=== PATIENT | female | born 1990 | race Native Hawaiian/Other Pacific Islander ===

== ENCOUNTER 2017-01-27 10:54 | Outpatient (CLI) | payer OTHER | END 2017-01-27 19:21 | disposition home or self-care (01) | LOC: LABW 10:54 | DX: E65 Localized adiposity (principal) | CPT/HCPCS: 36415; 80375; 82530 ==

== ENCOUNTER 2017-04-26 08:54 | Outpatient (CLI) | payer OTHER | END 2017-04-26 19:31 | disposition home or self-care (01) | LOC: RAD 08:54 | DX: M81.0 Age-related osteoporosis without current pathological fracture (principal) ==

== ENCOUNTER 2017-11-29 16:16 | Outpatient (CLI) | payer OTHER | END 2017-11-29 21:50 | disposition home or self-care (01) | LOC: RAD 16:16 | DX: M79.671 Pain in right foot (principal) ==

== ENCOUNTER 2018-01-04 18:44 | Emergency (ER) | payer OTHER ==
[~2018-01-04] VITALS: Ht 152.4 cm; Wt 121.1 kg
[2018-01-04 19:50] LABS: PLATELET COUNT 261 K/uL (152-353)
[2018-01-04 20:09] LABS: POTASSIUM 3.6 mmol/L (3.6-5.2)
[2018-01-04 22:10] VITALS: BP 120/76; TEMP 99
== END 2018-01-04 22:15 | disposition home or self-care (01) ==
LOC: ED 18:44
DX: J18.9 Pneumonia, unspecified organism (principal)
CPT/HCPCS: 80053; 85027; 87081; 87880; 94664; 94760; 96372; 99283; J0696

== ENCOUNTER 2019-03-09 12:17 | Emergency (ER) | payer OTHER ==
[~2019-03-09] VITALS: Ht 154.9 cm; Wt 113.4 kg
[2019-03-09 12:22] VITALS: TEMP 98
[2019-03-09] MEDS ORDERED: VENLAFAXINE75 M2 PO (12:36)
[2019-03-09] MEDS ORDERED: LEVO0.0723 PO (12:36)
[2019-03-09] MEDS ORDERED: CLON1TAB18 PO (12:37)
[2019-03-09 13:28] VITALS: BP 121/68
== END 2019-03-09 13:29 | disposition home or self-care (01) ==
LOC: ED 12:17
DX: J40 Bronchitis, not specified as acute or chronic (principal)
CPT/HCPCS: 87651; 99283

== ENCOUNTER 2019-04-17 11:04 | Outpatient (CLI) | payer BC, OTHER ==
[~2019-04-17 11:04] MED LIST: CLON1TAB18 PO; LEVO0.0723 PO; VENLAFAXINE75 M2 PO
== END 2019-04-17 20:38 | disposition home or self-care (01) ==
LOC: RAD 11:04
DX: Z01.818 Encounter for other preprocedural examination (principal)

== ENCOUNTER 2020-03-15 13:05 | Outpatient (CLI) | payer OTHER | END 2020-03-15 19:01 | disposition home or self-care (01) | LOC: RESP 13:05 → RAD 13:05 → RESP 19:01 | DX: R06.02 Shortness of breath (principal) ==

== ENCOUNTER 2020-11-20 15:58 | Outpatient (CLI) | payer OTHER | END 2020-11-20 22:24 | disposition home or self-care (01) | LOC: INF 15:58 | PROVIDERS: ATTEND Internal Medicine | DX: Z23 Encounter for immunization (principal) | CPT/HCPCS: 96372 ==

== ENCOUNTER 2020-12-12 11:31 | Outpatient (CLI) | payer OTHER | END 2020-12-12 22:20 | disposition home or self-care (01) | LOC: INF | PROVIDERS: ATTEND Internal Medicine | DX: Z23 Encounter for immunization (principal) | CPT/HCPCS: 96372 ==

== ENCOUNTER 2021-08-07 11:16 | Outpatient (CLI) | payer BC, OTHER | END 2021-08-07 19:00 | disposition home or self-care (01) | LOC: RAD 11:16 | PROVIDERS: ATTEND Nurse Practitioner Family | DX: E55.9 Vitamin D deficiency, unspecified (principal); H16.223 Keratoconjunctivitis sicca, not specified as Sjogren's, bilateral; M06.4 Inflammatory polyarthropathy; M41.9 Scoliosis, unspecified; M54.16 Radiculopathy, lumbar region ==

== ENCOUNTER 2022-03-20 16:54 | Emergency (ER) | payer OTHER ==
[~2022-03-20] VITALS: Ht 154.9 cm; Wt 93.4 kg
[2022-03-20 17:24] VITALS: BP 127/73; TEMP 97
== END 2022-03-20 18:40 | disposition home or self-care (01) ==
LOC: ED 16:54
DX: N39.0 Urinary tract infection, site not specified (principal); N76.0 Acute vaginitis
CPT/HCPCS: 81002; 81015; 81025; 87077; 87086; 87088; 87186; 87490; 87590; 96372; 99283; J0696; J1885; J2405

== ENCOUNTER 2022-06-18 11:09 | Emergency (ER) | payer OTHER ==
[~2022-06-18] VITALS: Ht 154.9 cm; Wt 84.4 kg
[2022-06-18 11:15] VITALS: TEMP 96.9
[2022-06-18 12:03] LABS: PLATELET COUNT 348 K/uL (152-353)
[2022-06-18 12:11] LABS: POTASSIUM 3.5 mmol/L (3.6-5.2)
[2022-06-18 15:30] VITALS: BP 108/68
== END 2022-06-18 15:40 | disposition home or self-care (01) ==
LOC: ED 11:09
PROVIDERS: Internal Medicine
DX: F19.10 Other psychoactive substance abuse, uncomplicated (principal); Z11.52 Encounter for screening for COVID-19
CPT/HCPCS: 80053; 80143; 80179; 80307; 80320; 81000; 81025; 85027; 87086; 87088; 87635; 93005; 99285; U0003

== ENCOUNTER 2022-07-03 23:49 | Emergency (ER) | payer OTHER ==
[~2022-07-03] VITALS: Ht 152.4 cm; Wt 82.6 kg
[2022-07-04] MEDS ORDERED: ARIPIPRAZOLE15 MG PO (00:16)
[2022-07-04] MEDS ORDERED: TRAZODONE HYDRO50 MG PO (00:17)
[2022-07-04] MEDS ORDERED: BUSPIRONE15 MG PO (00:18)
[2022-07-04] MEDS ORDERED: ESCITALOPRAM10 MG PO (00:18)
[2022-07-04] MEDS ORDERED: LEVOTHYROXINE50 MCG PO (00:20)
[2022-07-04 01:54] VITALS: BP 118/60; TEMP 97.6
== END 2022-07-04 01:54 | disposition home or self-care (01) ==
LOC: ED 23:49
DX: F41.8 Other specified anxiety disorders (principal)
CPT/HCPCS: 80307; 81002; 96372; 99283; J2060

== ENCOUNTER 2022-08-29 14:01 | Emergency (ER) | payer OTHER ==
[~2022-08-29] VITALS: Ht 152.4 cm; Wt 82.6 kg
[~2022-08-29 14:01] MED LIST changes: +ARIPIPRAZOLE15 MG PO; +BUSPIRONE15 MG PO; +ESCITALOPRAM10 MG PO; +LEVOTHYROXINE50 MCG PO; +TRAZODONE HYDRO50 MG PO
[2022-08-29] MEDS ORDERED: TRAZODONE HYDR100 MG PO (14:34)
[2022-08-29] MEDS ORDERED: ABILIFY20 MG PO (14:34)
[2022-08-29] MEDS ORDERED: VITAMIN D50000 UNIT PO (14:35)
[2022-08-29] MEDS ORDERED: LAMO100T PO (14:35)
[2022-08-29] MEDS ORDERED: PHENTERMINE H37.5 M1 PO (14:36)
[2022-08-29] MEDS ORDERED: EUTHYROX50 MCG PO (14:36)
[2022-08-29 15:21] LABS: PLATELET COUNT 347 K/uL (152-353)
[2022-08-29 19:00] VITALS: TEMP 98.1
[2022-08-29 21:30] VITALS: BP 128/74
== END 2022-08-29 21:30 | disposition still patient (30) ==
LOC: ED 14:01
PROVIDERS: Emergency Medicine
DX: R45.851 Suicidal ideations (principal); Z11.52 Encounter for screening for COVID-19
CPT/HCPCS: 36415; 80053; 80143; 80179; 80307; 80320; 81025; 85027; 87635; 99285; J2060; U0003